=== PATIENT | female | born 1935 | race Two or more races ===

== ENCOUNTER 2024-01-04 16:06 | Inpatient (IN) | payer MEDICARE, OTHER ==
[~2024-01-04] VITALS: Ht 165.1 cm; Wt 54.9 kg
[2024-01-04 16:52] LABS: BASOPHILS # (AUTO) 0.1 K/uL (0.0-0.2); BASOPHILS % (AUTO) 0.9 % (0.0-2.0); EOSINOPHILS # (AUTO) 0.1 K/uL (0.0-0.7); EOSINOPHILS % (AUTO) 0.7 % (0.0-6.0); HEMATOCRIT 36 % (33-45); LYMPHOCYTES # (AUTO) 1.1 K/uL (0.8-4.8); LYMPHOCYTES % (AUTO) 12.5 % (20.0-44.0); MEAN CORPUSCULAR HEMOGLOBIN 29 PG (26.0-33.0); MEAN CORPUSCULAR HGB CONC 33 g/dl (31.0-36.0); MEAN CORPUSCULAR VOLUME 89 fL (82-100); MONOCYTES # (AUTO) 0.8 K/uL (0.1-1.30); MONOCYTES % (AUTO) 8.8 % (2.0-12.0); NEUTROPHILS # (AUTO) 6.8 K/uL (1.8-8.9); NEUTROPHILS % (AUTO) 77.1 % (43.0-81.0); PLATELET COUNT (AUTO) 199 K/uL (150-450); RED CELL DISTRIBUTION WIDTH 16.1 % (11.5-15.0); WHITE BLOOD COUNT (AUTO) 8.8 K/uL (4.3-11.0)
[2024-01-04 17:04] LABS: ALANINE AMINOTRANSFERASE 14 U/L (12-78); ALBUMIN 2.9 g/dL (3.4-5.0); ALCOHOL, BLOOD < 3 mg/dL (0-10); ALKALINE PHOSPHATASE 93 U/L (46-116); ASPARTATE AMINOTRANSFERASE 19 U/L (15-37); BILIRUBIN,DIRECT 0.2 mg/dL (0.0-0.2); BILIRUBIN,TOTAL 0.5 mg/dL (0.2-1.0); CALCIUM, SERUM 9.4 mg/dL (8.5-10.1); CARBON DIOXIDE 29 mmol/L (21-32); CHLORIDE 103 mmol/L (98-107); CREATININE 0.7 mg/dL (0.6-1.3); GLUCOSE 132 mg/dL (74-106); POTASSIUM 3.6 mmol/L (3.5-5.1); SODIUM SERUM 138 mmol/L (136-145); TOTAL PROTEIN, SERUM 6.6 g/dL (6.4-8.2); UREA NITROGEN, BLOOD 20 mg/dL (7-18)
[2024-01-04 17:06] LABS: ACETAMINOPHEN 0 ug/ml (10-30); SALICYLATE 0.7 mg/dL (2.8-20.0)
[2024-01-04] MEDS ORDERED: BISA10SU11 RC (17:45)
[2024-01-04] MEDS ORDERED: POLY17PO4 PO (17:45)
[2024-01-04] MEDS ORDERED: NA P133E RC (17:45)
[2024-01-04] MEDS ORDERED: CLON1PAT2 TD (17:45)
[2024-01-04] MEDS ORDERED: FERR325T23 PO (17:45)
[2024-01-04] MEDS ORDERED: LABE200T5 PO (17:45)
[2024-01-04] MEDS ORDERED: MINO2.5T2 PO (17:45)
[2024-01-04] MEDS ORDERED: MAGN400O6 PO (17:45)
[2024-01-04] MEDS ORDERED: LEVE1000 PO (17:45)
[2024-01-04] MEDS ORDERED: TAMS-12 PO (17:45)
[2024-01-04] MEDS ORDERED: CLON0.5T4 PO (17:45)
[2024-01-04] MEDS: IV NS 0.9% 1,000 ML IV ONE (18:30)
[2024-01-04 20:11] LABS: APPEARANCE,URINE CLEAR (CLEAR); BILIRUBIN,URINE NEGATIVE (NEGATIVE); BLOOD, URINE NEGATIVE Ery/uL (NEGATIVE); COLOR,URINE YELLOW (YELLOW); KETONES,URINE NEGATIVE (NEGATIVE); LEUKOCYTE ESTERASE ,URINE NEGATIVE (NEGATIVE); NITRITE, URINE NEGATIVE (NEGATIVE); PROTEIN,URINE NEGATIVE (NEGATIVE); UGLUCOSE NEGATIVE (NEGATIVE); UROBILINOGEN,URINE 0.2 EU/dL (0.2)
[2024-01-04 20:23] LABS: AMPHETAMINE, URINE NEGATIVE (NEGATIVE); BARBITURATE, URINE NEGATIVE (NEGATIVE); BENZODIAZEPINE, URINE NEGATIVE (NEGATIVE); CANNABINOID, URINE NEGATIVE (NEGATIVE); COCCAINE, URINE NEGATIVE (NEGATIVE); OPIATE, URINE NEGATIVE (NEGATIVE); PHENCYCLIDINE SCREEN,URINE NEGATIVE (NEGATIVE)
[2024-01-04] MEDS: LEVETIRACETAM (250 MG) 250 MG TABLET PO SCH (23:22)
[2024-01-04] MEDS ORDERED: MAG HYDROX/AL HYDROX/SIMETH 30 ML UDC PO PRN (23:30)
[2024-01-04] MEDS ORDERED: LORAZEPAM 0.5 MG TABLET PO PRN (23:30)
[2024-01-04] MEDS ORDERED: ACETAMINOPHEN 325 MG TABLET PO PRN (23:30)
[2024-01-04] MEDS: BLOOD SUGAR DIAGNOSTIC 1 EACH STRIP IN ONE (23:49)
[2024-01-05 00:31] VITALS: BP 125/67; TEMP 98; O2SAT 98
[2024-01-05] MEDS ORDERED: Z GUARD REMEDY 4 OZ OINT TP PRN (06:30)
[2024-01-05 08:00] VITALS: BP 182/127; TEMP 98.1; O2SAT 98
[2024-01-05] MEDS: GLUCERNA SHAKE 237 ML CAN PO SCH (08:00)
[2024-01-05] MEDS: Z GUARD REMEDY 4 OZ OINT TP PRN (09:39)
[2024-01-05] MEDS: FERROUS SULFATE (325 MG) 325 MG/TAB TABLET PO SCH (09:45)
[2024-01-05] MEDS: MINOXIDIL (2.5MG) 2.5 MG TABLET PO SCH (09:46)
[2024-01-05] MEDS: LABETALOL HCL (100MG) 100 MG TABLET PO SCH (09:47)
[2024-01-05] MEDS: Z GUARD REMEDY 4 OZ OINT TP SCH (09:48)
[2024-01-05 14:00] VITALS: BP 99/62; TEMP 97.5
[2024-01-05] MEDS: OXCARBAZEPINE 150 MG TABLET PO SCH (15:54)
[2024-01-05 17:50] VITALS: BP 122/71; TEMP 97.9; O2SAT 98
[2024-01-05] MEDS: TAMSULOSIN 0.4 MG CAP.SR.24H PO SCH (18:03)
[2024-01-05 20:00] VITALS: BP 150/98; TEMP 98.3; O2SAT 98
[2024-01-06 07:35] LABS: BASOPHILS % (AUTO) 0.5 % (0.0-2.0); EOSINOPHILS # (AUTO) 0.1 K/uL (0.0-0.7); EOSINOPHILS % (AUTO) 1.1 % (0.0-6.0); HEMATOCRIT 31 % (33-45); HEMOGLOBIN 10.7 g/dL (11.5-14.8); LYMPHOCYTES % (AUTO) 12.7 % (20.0-44.0); MEAN CORPUSCULAR HEMOGLOBIN 31 PG (26.0-33.0); MEAN CORPUSCULAR HGB CONC 34 g/dl (31.0-36.0); MEAN CORPUSCULAR VOLUME 89 fL (82-100); MONOCYTES # (AUTO) 0.8 K/uL (0.1-1.30); MONOCYTES % (AUTO) 9.7 % (2.0-12.0); PLATELET COUNT (AUTO) 196 K/uL (150-450); RED BLOOD CELL COUNT(AUTO) 3.49 MIL/uL (4.0-5.2); WHITE BLOOD COUNT (AUTO) 7.9 K/uL (4.3-11.0)
[2024-01-06 08:00] VITALS: BP 116/64; TEMP 98; O2SAT 98
[2024-01-06 08:21] LABS: CALCIUM, SERUM 9.5 mg/dL (8.5-10.1); CARBON DIOXIDE 29 mmol/L (21-32); CHLORIDE 105 mmol/L (98-107); CREATININE 0.7 mg/dL (0.6-1.3); GLUCOSE 105 mg/dL (74-106); POTASSIUM 3.4 mmol/L (3.5-5.1); SODIUM SERUM 139 mmol/L (136-145); UREA NITROGEN, BLOOD 21 mg/dL (7-18)
[2024-01-06 08:26] LABS: CHOLESTEROL 186 mg/dL (<200); HDL CHOLESTEROL 56 mg/dL (40-60); LDL 104 mg/dL (0-99); TRIGLYCERIDES 82 mg/dL (30-150)
[2024-01-06] MEDS: THERAHONEY GEL 1.5 OZ TUBE TP SCH (09:00)
[2024-01-06] MEDS: OXCARBAZEPINE 150 MG TABLET PO SCH (13:38)
[2024-01-06 16:00] VITALS: BP 149/100; TEMP 97.8; O2SAT 94
[2024-01-06] MEDS: QUETIAPINE FUMARATE 25 MG TABLET PO SCH (20:30)
[2024-01-07 08:00] VITALS: BP 147/90; TEMP 98.6; O2SAT 95
[2024-01-07 16:00] VITALS: BP 133/69; TEMP 97.5; O2SAT 94
[2024-01-07] MEDS: MIRTAZAPINE 15 MG TABLET PO SCH (21:09)
[2024-01-07 22:27] VITALS: BP 128/54; TEMP 98.2; O2SAT 97
[2024-01-08] MEDS: ZOLPIDEM TARTRATE 5 MG TABLET PO PRN (00:39)
[2024-01-08 08:00] VITALS: BP_SYST 123; BP_SYST 140; BP_DIAS 52; BP_DIAS 78; TEMP 97.9; TEMP 98.7; O2SAT 98
[2024-01-08 21:03] VITALS: BP 142/62; TEMP 98; O2SAT 98
[2024-01-09 08:00] VITALS: BP 140/104; TEMP 97.6; O2SAT 97
[2024-01-09 12:53] VITALS: BP 134/69; TEMP 98.5; O2SAT 97
[2024-01-09 16:00] VITALS: BP 141/64; TEMP 97.7; O2SAT 96
[2024-01-10 08:00] VITALS: BP 172/82; TEMP 98.6; O2SAT 98
[2024-01-10 16:00] VITALS: BP 137/67; TEMP 98; O2SAT 100
[2024-01-10 20:27] VITALS: BP 125/72; TEMP 98.4; O2SAT 97
[2024-01-11 08:00] VITALS: BP 172/71; TEMP 97.5; O2SAT 97
[2024-01-11 16:00] VITALS: BP 159/90; TEMP 97.7; O2SAT 96
[2024-01-11 20:00] VITALS: BP 147/89; TEMP 98.4; O2SAT 96
[2024-01-11] MEDS: MIRTAZAPINE 15 MG TABLET PO SCH (21:35)
[2024-01-12 08:00] VITALS: BP 149/66; TEMP 98.6; O2SAT 98
[2024-01-12 16:00] VITALS: BP 154/66; TEMP 100.2; O2SAT 98
[2024-01-12 17:28] LABS: BASOPHILS % (AUTO) 0.4 % (0.0-2.0); EOSINOPHILS # (AUTO) 0.1 K/uL (0.0-0.7); EOSINOPHILS % (AUTO) 0.5 % (0.0-6.0); HEMATOCRIT 35 % (33-45); HEMOGLOBIN 11.6 g/dL (11.5-14.8); LYMPHOCYTES # (AUTO) 0.9 K/uL (0.8-4.8); LYMPHOCYTES % (AUTO) 8.1 % (20.0-44.0); MEAN CORPUSCULAR HEMOGLOBIN 30 PG (26.0-33.0); MEAN CORPUSCULAR HGB CONC 33 g/dl (31.0-36.0); MEAN CORPUSCULAR VOLUME 90 fL (82-100); MONOCYTES # (AUTO) 0.8 K/uL (0.1-1.30); MONOCYTES % (AUTO) 7.5 % (2.0-12.0); NEUTROPHILS % (AUTO) 83.5 % (43.0-81.0); PLATELET COUNT (AUTO) 222 K/uL (150-450); RED BLOOD CELL COUNT(AUTO) 3.87 MIL/uL (4.0-5.2); RED CELL DISTRIBUTION WIDTH 16.1 % (11.5-15.0); WHITE BLOOD COUNT (AUTO) 10.7 K/uL (4.3-11.0)
[2024-01-12 17:39] LABS: CALCIUM, SERUM 9.4 mg/dL (8.5-10.1); CARBON DIOXIDE 28 mmol/L (21-32); CHLORIDE 105 mmol/L (98-107); GLUCOSE 107 mg/dL (74-106); POTASSIUM 4.1 mmol/L (3.5-5.1); SODIUM SERUM 141 mmol/L (136-145); UREA NITROGEN, BLOOD 42 mg/dL (7-18)
[2024-01-12 18:01] LABS: APPEARANCE,URINE CLOUDY (CLEAR); BILIRUBIN,URINE NEGATIVE (NEGATIVE); BLOOD, URINE 1+ Ery/uL (NEGATIVE); COLOR,URINE YELLOW (YELLOW); KETONES,URINE NEGATIVE (NEGATIVE); LEUKOCYTE ESTERASE ,URINE 3+ (NEGATIVE); NITRITE, URINE NEGATIVE (NEGATIVE); PH,URINE 8.5 (5.0-8.0); PROTEIN,URINE 2+ mg/dl (NEGATIVE); UGLUCOSE NEGATIVE (NEGATIVE); UROBILINOGEN,URINE 0.2 EU/dL (0.2)
[2024-01-12 18:15] LABS: ADD URINE CULTURE YES; BACTERIA,URINE Many /HPF (None Seen); WBC,URINE 21-50 /HPF (0-3)
[2024-01-12 18:16] LABS: SQUAMOUS EPITHELIAL CELL,UR Rare /HPF (None Seen)
[2024-01-12] MEDS ORDERED: LEVOFLOXACIN (250MG) 250 MG TABLET PO SCH (19:00)
[2024-01-12 20:00] VITALS: BP 154/97; TEMP 97.6; O2SAT 98
[2024-01-12] MEDS: AZITHROMYCIN 250 MG TABLET PO SCH (20:25)
[2024-01-12] MEDS: AMOX/CLAVULANATE 875 MG TABLET PO SCH (20:40)
[2024-01-13 07:29] LABS: BASOPHILS % (AUTO) 0.3 % (0.0-2.0); EOSINOPHILS # (AUTO) 0.1 K/uL (0.0-0.7); EOSINOPHILS % (AUTO) 1.5 % (0.0-6.0); HEMATOCRIT 31 % (33-45); HEMOGLOBIN 10.5 g/dL (11.5-14.8); LYMPHOCYTES # (AUTO) 1.2 K/uL (0.8-4.8); LYMPHOCYTES % (AUTO) 13.1 % (20.0-44.0); MEAN CORPUSCULAR HEMOGLOBIN 30 PG (26.0-33.0); MEAN CORPUSCULAR HGB CONC 34 g/dl (31.0-36.0); MEAN CORPUSCULAR VOLUME 89 fL (82-100); MONOCYTES # (AUTO) 0.9 K/uL (0.1-1.30); MONOCYTES % (AUTO) 9.9 % (2.0-12.0); NEUTROPHILS # (AUTO) 6.7 K/uL (1.8-8.9); NEUTROPHILS % (AUTO) 75.2 % (43.0-81.0); PLATELET COUNT (AUTO) 212 K/uL (150-450); RED BLOOD CELL COUNT(AUTO) 3.45 MIL/uL (4.0-5.2); RED CELL DISTRIBUTION WIDTH 15.5 % (11.5-15.0)
[2024-01-13 08:00] VITALS: BP 175/93; TEMP 97.6; O2SAT 95
[2024-01-13 08:12] LABS: CALCIUM, SERUM 9.4 mg/dL (8.5-10.1); CARBON DIOXIDE 25 mmol/L (21-32); CHLORIDE 107 mmol/L (98-107); CREATININE 0.8 mg/dL (0.6-1.3); GLUCOSE 99 mg/dL (74-106); POTASSIUM 3.7 mmol/L (3.5-5.1); SODIUM SERUM 141 mmol/L (136-145); UREA NITROGEN, BLOOD 37 mg/dL (7-18)
[2024-01-13] MEDS: CEFTRIAXONE 1 G VIAL IM SCH (13:43)
[2024-01-13 16:00] VITALS: BP 120/58; TEMP 97.8; O2SAT 100
[2024-01-13 20:00] VITALS: BP 136/82; TEMP 97.8; O2SAT 98
[2024-01-14 07:26] LABS: BASOPHILS % (AUTO) 0.3 % (0.0-2.0); EOSINOPHILS # (AUTO) 0.1 K/uL (0.0-0.7); EOSINOPHILS % (AUTO) 0.6 % (0.0-6.0); HEMATOCRIT 34 % (33-45); HEMOGLOBIN 11.5 g/dL (11.5-14.8); LYMPHOCYTES # (AUTO) 0.9 K/uL (0.8-4.8); LYMPHOCYTES % (AUTO) 9.3 % (20.0-44.0); MEAN CORPUSCULAR HEMOGLOBIN 30 PG (26.0-33.0); MEAN CORPUSCULAR HGB CONC 34 g/dl (31.0-36.0); MEAN CORPUSCULAR VOLUME 89 fL (82-100); MONOCYTES % (AUTO) 10.1 % (2.0-12.0); NEUTROPHILS # (AUTO) 8.1 K/uL (1.8-8.9); NEUTROPHILS % (AUTO) 79.7 % (43.0-81.0); PLATELET COUNT (AUTO) 222 K/uL (150-450); RED CELL DISTRIBUTION WIDTH 15.6 % (11.5-15.0); WHITE BLOOD COUNT (AUTO) 10.2 K/uL (4.3-11.0)
[2024-01-14 08:00] VITALS: BP 142/81; TEMP 97.6; O2SAT 95
[2024-01-14 09:50] LABS: CALCIUM, SERUM 9.9 mg/dL (8.5-10.1); MAGNESIUM 2.4 mg/dL (1.8-2.4); PHOSPHORUS 2.8 mg/dL (2.5-4.9); POTASSIUM 3.8 mmol/L (3.5-5.1)
[2024-01-14 16:00] VITALS: BP 118/53; TEMP 97.9; O2SAT 96
[2024-01-14 20:35] VITALS: BP 127/70; TEMP 98.2; O2SAT 97
[2024-01-15 08:00] VITALS: BP 123/83; TEMP 97.9; O2SAT 100
[2024-01-15 16:00] VITALS: BP 121/85; TEMP 97.9; O2SAT 98
[2024-01-15] MEDS: QUETIAPINE FUMARATE 25 MG TABLET PO SCH (20:14)
[2024-01-15 21:00] VITALS: BP 119/66; TEMP 97.9; O2SAT 97
[2024-01-16 08:00] VITALS: BP 146/66; TEMP 98.1; O2SAT 96
[2024-01-16] MEDS: MAGNESIUM HYDROXIDE 30 ML UDC PO PRN (08:03)
[2024-01-16 16:00] VITALS: BP 106/61; TEMP 97.8; O2SAT 97
[2024-01-16 21:25] VITALS: BP 143/79; TEMP 98.4; O2SAT 97
[2024-01-17 08:00] VITALS: BP 140/60; TEMP 98.7; O2SAT 98
[2024-01-17 16:00] VITALS: BP 132/72; TEMP 98.7; O2SAT 99
[2024-01-17 20:58] VITALS: BP 116/61; TEMP 98.6; O2SAT 100
[2024-01-18 08:00] VITALS: BP 139/65; TEMP 97.8; O2SAT 95
[2024-01-18 16:48] VITALS: BP 143/63; TEMP 98.2; O2SAT 96
[2024-01-18 16:52] LABS: BILIRUBIN,URINE 1+ (NEGATIVE); BLOOD, URINE 3+ Ery/uL (NEGATIVE); COLOR,URINE YELLOW (YELLOW); KETONES,URINE NEGATIVE (NEGATIVE); LEUKOCYTE ESTERASE ,URINE 3+ (NEGATIVE); NITRITE, URINE NEGATIVE (NEGATIVE); PROTEIN,URINE 2+ mg/dl (NEGATIVE); UGLUCOSE NEGATIVE (NEGATIVE); UROBILINOGEN,URINE 0.2 EU/dL (0.2)
[2024-01-18 17:01] LABS: APPEARANCE,URINE CLOUDY (CLEAR)
[2024-01-18 19:35] LABS: ADD URINE CULTURE YES; BACTERIA,URINE 3+ /HPF (None Seen); RBC,URINE 51-80 /HPF (0-2); WBC,URINE 51-80 /HPF (0-3)
[2024-01-18 19:36] LABS: SQUAMOUS EPITHELIAL CELL,UR 0-2 /HPF (None Seen)
[2024-01-18 20:00] VITALS: BP 125/80; TEMP 97.9; O2SAT 95
[2024-01-19 08:00] VITALS: BP 150/69; TEMP 97.5; O2SAT 95
[2024-01-19 10:59] LABS: BASOPHILS # (AUTO) 0.1 K/uL (0.0-0.2); BASOPHILS % (AUTO) 0.6 % (0.0-2.0); EOSINOPHILS # (AUTO) 0.1 K/uL (0.0-0.7); EOSINOPHILS % (AUTO) 1.6 % (0.0-6.0); HEMATOCRIT 33 % (33-45); HEMOGLOBIN 10.8 g/dL (11.5-14.8); LYMPHOCYTES # (AUTO) 0.8 K/uL (0.8-4.8); LYMPHOCYTES % (AUTO) 9.1 % (20.0-44.0); MEAN CORPUSCULAR HEMOGLOBIN 29 PG (26.0-33.0); MEAN CORPUSCULAR HGB CONC 33 g/dl (31.0-36.0); MEAN CORPUSCULAR VOLUME 88 fL (82-100); MONOCYTES # (AUTO) 0.6 K/uL (0.1-1.30); MONOCYTES % (AUTO) 7.2 % (2.0-12.0); NEUTROPHILS # (AUTO) 7.4 K/uL (1.8-8.9); NEUTROPHILS % (AUTO) 81.5 % (43.0-81.0); PLATELET COUNT (AUTO) 243 K/uL (150-450); RED BLOOD CELL COUNT(AUTO) 3.69 MIL/uL (4.0-5.2); RED CELL DISTRIBUTION WIDTH 15.5 % (11.5-15.0)
[2024-01-19 11:06] LABS: CALCIUM, SERUM 8.4 mg/dL (8.5-10.1); CARBON DIOXIDE 26 mmol/L (21-32); CHLORIDE 105 mmol/L (98-107); CREATININE 0.8 mg/dL (0.6-1.3); GLUCOSE 134 mg/dL (74-106); POTASSIUM 3.9 mmol/L (3.5-5.1); SODIUM SERUM 139 mmol/L (136-145); UREA NITROGEN, BLOOD 27 mg/dL (7-18)
[2024-01-19 13:22] LABS: BAND % (MANUAL) 1 % (0.0-5.0); EOSINOPHILS % (MANUAL) 2 % (0-4); LYMPHOCYTES % (MANUAL) 6 % (16-48); MONOCYTES % (MANUAL) 5 % (0-11.0); NEUTROPHILS % (MANUAL) 86 (42-76)
[2024-01-19 13:23] LABS: PLATELET ESTIMATE ADEQUATE
[2024-01-19 16:00] VITALS: BP 126/73; TEMP 97.7; O2SAT 94
[2024-01-19] MEDS ORDERED: CEPHALEXIN MONOHYDRATE 250 MG CAPSULE PO SCH (17:00)
== END 2024-01-19 16:30 | DRG 885 ==
LOC: ER 16:34 → GPS 20:13
PROVIDERS: ADMIT Psychiatry & Neurology Psychiatry; ATTEND Student in an Organized Health Care Education/Training Program
DX: F39 Unspecified mood [affective] disorder (principal); J15.9 Unspecified bacterial pneumonia; F03.93 Unspecified dementia, unspecified severity, with mood disturbance; G93.40 Encephalopathy, unspecified; F03.918 Unspecified dementia, unspecified severity, with other behavioral disturbance; N39.0 Urinary tract infection, site not specified; J44.0 Chronic obstructive pulmonary disease with (acute) lower respiratory infection; F03.92 Unspecified dementia, unspecified severity, with psychotic disturbance; F29 Unspecified psychosis not due to a substance or known physiological condition; E11.9 Type 2 diabetes mellitus without complications; B96.4 Proteus (mirabilis) (morganii) as the cause of diseases classified elsewhere; D64.9 Anemia, unspecified; D69.2 Other nonthrombocytopenic purpura; E86.0 Dehydration; I10 Essential (primary) hypertension; Z88.2 Allergy status to sulfonamides; S81.811A Laceration without foreign body, right lower leg, initial encounter; Y93.9 Activity, unspecified; X58.XXXA Exposure to other specified factors, initial encounter; Y92.009 Unspecified place in unspecified non-institutional (private) residence as the place of occurrence of the external cause; Z73.6 Limitation of activities due to disability; Z79.899 Other long term (current) drug therapy
CPT/HCPCS: 36415; 71045-TC; 80048-TC; 80061-TC; 80076-TC; 81001; 83735-TC; 84100-TC; 84443-TC; 85025-TC; 87081-TC; 87086-TC; 97116-TC; 97530-TC; G0480; J0696; J7030